=== PATIENT | female | born 1965 | race Caucasian/White ===

== ENCOUNTER 2021-09-07 01:30 | Emergency (ER) | payer SELFPAY ==
[~2021-09-07] VITALS: Ht 170.2 cm; Wt 100.0 kg
[~2021-09-07 01:30] MED LIST: ONDA4TAB12 PO
[2021-09-07 01:38] VITALS: BP 226/77
[2021-09-07 02:12] LABS: BASOPHILS # (AUTO) 0.1 X10'3 (0-0.2); BASOPHILS % (AUTO) 1.5 % (0-1); EOSINOPHILS # (AUTO) 0.7 X10'3 (0-0.9); EOSINOPHILS % (AUTO) 9.2 % (0-6); HEMOGLOBIN 14.6 g/dl (12.0-16.0); LYMPHOCYTES # (AUTO) 2.3 X10'3 (1.1-4.8); LYMPHOCYTES % (AUTO) 31.7 % (21-51); MEAN CORPUSCULAR HGB CONC 34.7 g/dL (33.0-36.5); MEAN CORPUSCULAR VOLUME 89.5 FL (78-98); MEAN PLATELET VOLUME 9.1 FL (7.4-10.4); MONOCYTES # (AUTO) 0.6 X10'3 (0-0.9); MONOCYTES % (AUTO) 8.6 % (2-12); NEUTROPHILS # (AUTO) 3.6 X10'3 (1.8-7.7); PLATELET COUNT 245 X10'3 (140-440); RED BLOOD COUNT 4.69 X10'6 (4.20-5.60); RED CELL DISTRIBUTION WIDTH 13.9 % (11.5-14.5); WHITE BLOOD COUNT 7.3 X10'3 (4.5-11.0)
--- NOTE | 2021-09-07 02:45 | NUR ---
VOICE MESSAGE WAS LEFT FOR PT TO COME BACK TO THE ER FOR EVALUATION BY ROSENDO GARCIA
[2021-09-07 02:55] LABS: ALANINE AMINOTRANSFERASE 37 U/L (12-78); ALBUMIN 3.6 G/DL (3.4-5.0); ALBUMIN/GLOBULIN RATIO 0.9 (1.1-1.5); ALKALINE PHOSPHATASE 127 IU/L (46-116); ANION GAP 10 (8-16); ASPARTATE AMINO TRANSFERASE 20 U/L (10-37); BILIRUBIN,TOTAL 0.2 MG/DL (0.1-1.0); BLOOD UREA NITROGEN 17 MG/DL (7-18); BUN/CREATININE RATIO 16.7 (6.6-38.0); CALCIUM 8.9 MG/DL (8.5-10.1); CHLORIDE 106 MMOL/L (99-107); CREATININE 1.02 MG/DL (0.40-0.90); GLUCOSE 162 MG/DL (70-104); POTASSIUM 3.3 MMOL/L (3.5-5.1); SODIUM 145 MMOL/L (135-145); TOTAL CARBON DIOXIDE 29.1 MMOL/L (24-32); TOTAL PROTEIN 7.8 G/DL (6.4-8.2); eGFR 56 ML/MIN
[2021-09-07] MEDS ORDERED: DIAZ-351 PO (07:01)
[2021-09-07] MEDS ORDERED: METH-797 PO (07:02)
== END 2021-09-07 03:21 | disposition left against medical advice (07) ==
LOC: ER 01:31
DX: R07.89 Other chest pain (principal); Z53.21 Procedure and treatment not carried out due to patient leaving prior to being seen by health care provider
CPT/HCPCS: 36415; 71045; 80053; 83880; 84484; 85025; 93005; 99285

== ENCOUNTER 2021-09-07 06:10 | Emergency (ER) | payer SELFPAY ==
[~2021-09-07] VITALS: Ht 170.2 cm; Wt 93.0 kg
[2021-09-07 06:19] VITALS: BP 200/116
[2021-09-07] MEDS ORDERED: ketorolac tromethamine 15mg/ml inj. IM ONE (06:40)
--- NOTE | 2021-09-07 07:00 | NUR ---
PT WAS LAYING IN BED AROUND MIDNIGHT AND SAT UP FELT SHARP PAIN IN MID BACK. 07/20.
[2021-09-07] MEDS ORDERED: DIAZ-351 PO (07:01)
[2021-09-07] MEDS ORDERED: METH-797 PO (07:02)
== END 2021-09-07 07:40 | disposition left against medical advice (07) ==
LOC: ER 06:10
DX: S39.012A Strain of muscle, fascia and tendon of lower back, initial encounter (principal); G89.29 Other chronic pain; Z79.899 Other long term (current) drug therapy; I10 Essential (primary) hypertension; E07.9 Disorder of thyroid, unspecified; Z72.89 Other problems related to lifestyle; Z90.79 Acquired absence of other genital organ(s); Z98.891 History of uterine scar from previous surgery; Z90.49 Acquired absence of other specified parts of digestive tract; X50.1XXA Overexertion from prolonged static or awkward postures, initial encounter; Y93.89 Activity, other specified; Y92.89 Other specified places as the place of occurrence of the external cause; Y99.8 Other external cause status
CPT/HCPCS: 96372; 99283; J1885